=== PATIENT | male | born 1965 | race Asian ===

== ENCOUNTER 2018-07-06 08:23 | Emergency (ER) | payer MEDICAID ==
[~2018-07-06] VITALS: Ht 170.2 cm; Wt 72.7 kg
[2018-07-06] MEDS ORDERED: LOSA50TA64 PO (08:25)
[2018-07-06] MEDS ORDERED: SODIUM CHLORIDE 0.9% 1,000 ML IV ONE ×2 (09:15→10:15)
[2018-07-06] MEDS ORDERED: ONDANSETRON HCL 4 MG/2 ML VIAL IVP ONE (09:15)
[2018-07-06] MEDS ORDERED: BARIUM SULFATE 0.1% SUSPENSION 450 ML BOTTLE PO ONE (09:15)
[2018-07-06] MEDS ORDERED: FentaNYL CITRATE-PF 100 MCG/2 ML VIAL IVP ONE (09:15)
[2018-07-06 09:25] LABS: BASOPHILS % (AUTO) 0.6 % (0.0-2.0); EOSINOPHILS % (AUTO) 0.8 % (1.0-6.0); HEMATOCRIT 42.3 % (41-53); HEMOGLOBIN 14.2 g/dL (13.5-17.5); LYMPHOCYTES # (AUTO) 1.7 K/uL (1.0-4.8); LYMPHOCYTES % (AUTO) 21.5 % (22.0-44.0); MEAN CORPUSCULAR HEMOGLOBIN 28.8 pg (26.0-34.0); MEAN CORPUSCULAR HGB CONC 33.6 G/dL (31.0-37.0); MEAN CORPUSCULAR VOLUME 86 fL (80-100); MONOCYTES # (AUTO) 0.6 K/uL (0.1-1.0); MONOCYTES % (AUTO) 7.8 % (2.0-9.0); NEUTROPHILS # (AUTO) 5.6 K/uL (1.8-7.7); NEUTROPHILS % (AUTO) 69.3 % (40.0-70.0); PLATELET COUNT (AUTO) 227 K/uL (150-450); RED BLOOD CELL COUNT(AUTO) 4.93 MIL/uL (4.50-5.90); RED CELL DISTRIBUTION WIDTH 13.2 % (11.5-14.5)
[2018-07-06 09:38] LABS: CALCIUM, TOTAL 9.2 mg/dL (8.8-10.5); CREATININE 2.02 mg/dL (0.60-1.30); POTASSIUM 4.1 mmol/L (3.5-5.1)
[2018-07-06 09:46] LABS: ALBUMIN 3.9 g/dL (3.4-5.0); BILIRUBIN,TOTAL 0.4 mg/dL (0.1-1.0); TOTAL PROTEIN, SERUM 7.2 g/dL (6.4-8.2)
[2018-07-06] MEDS ORDERED: IOVERSOL 350 MG/ML 100 ML VIAL ONE (10:32)
[2018-07-06] MEDS ORDERED: SODIUM CHLORIDE 0.9% 0 ML ONE (10:32)
[2018-07-06 10:57] LABS: APPEARANCE,URINE CLEAR (CLEAR); BILIRUBIN,URINE NEGATIVE (NEGATIVE); GLUCOSE, URINE (UA) NEGATIVE (NEGATIVE); KETONES,URINE NEGATIVE (NEGATIVE); LEUKOCYTE ESTERASE ,URINE NEGATIVE (NEGATIVE); NITRATE,URINE NEGATIVE (NEGATIVE); OCCULT BLOOD,URINE SMALL (NEGATIVE); PROTEIN,URINE NEGATIVE (NEGATIVE); UROBILINOGEN,URINE 0.2 mg/dL (<=1.0)
[2018-07-06 11:12] LABS: BACTERIA,URINE None Seen /HPF (None Seen); SQUAMOUS EPITHELIAL CELL,UR Few /LPF (None Seen)
[2018-07-06] MEDS ORDERED: ONDANSETRON HCL 4 MG/2 ML VIAL IVP PRN (12:45)
[2018-07-06] MEDS ORDERED: ACETAMINOPHEN 325 MG TABLET PO PRN (12:45)
[2018-07-06] MEDS ORDERED: 0.9% SODIUM CHLORIDE 10 ML SYRINGE IVP PRN (12:45)
[2018-07-06 16:34] VITALS: BP 128/69
== END 2018-07-06 17:07 | disposition home or self-care (01) ==
LOC: EMS 08:26 → 5N 15:59 → UNDOADMIN 15:59 → EMS 17:07
DX: K52.9 Noninfective gastroenteritis and colitis, unspecified (principal); N17.9 Acute kidney failure, unspecified; I10 Essential (primary) hypertension; E87.6 Hypokalemia
CPT/HCPCS: 36415; 51701; 71045; 74176; 80053; 81001; 83690; 84484; 85025; 93005; 96361; 96374; 96375; 99285; J2405; J3010; J7030; J7050

== ENCOUNTER 2018-07-07 14:11 | Emergency (ER) | payer MEDICAID ==
[~2018-07-07] VITALS: Ht 162.6 cm; Wt 66.8 kg
[~2018-07-07 14:11] MED LIST: LOSA50TA64 PO
[2018-07-07 18:13] VITALS: BP 156/87
[2018-07-07 18:18] LABS: CALCIUM, TOTAL 9.1 mg/dL (8.8-10.5); CREATININE 1.31 mg/dL (0.60-1.30); POTASSIUM 3.7 mmol/L (3.5-5.1)
== END 2018-07-07 18:51 | disposition home or self-care (01) ==
LOC: EMS 14:12
DX: T83.89XA Other specified complication of genitourinary prosthetic devices, implants and grafts, initial encounter (principal); I10 Essential (primary) hypertension; Z79.899 Other long term (current) drug therapy; Y84.6 Urinary catheterization as the cause of abnormal reaction of the patient, or of later complication, without mention of misadventure at the time of the procedure

== ENCOUNTER 2021-08-02 19:55 | Emergency (ER) | payer MEDICAID, OTHER ==
[~2021-08-02] VITALS: Ht 162.6 cm; Wt 67.3 kg
[~2021-08-02 19:55] MED LIST changes: +LOSA-382 PO; -LOSA50TA64 PO
[2021-08-02 20:03] VITALS: BP 139/89
[2021-08-02] MEDS ORDERED: LIDOCAINE 1% 10 ML VIAL ID ONE (21:00)
== END 2021-08-02 22:09 | disposition home or self-care (01) ==
LOC: EMS 19:58
DX: S61.212A Laceration without foreign body of right middle finger without damage to nail, initial encounter (principal); I10 Essential (primary) hypertension; N40.0 Benign prostatic hyperplasia without lower urinary tract symptoms; W45.8XXA Other foreign body or object entering through skin, initial encounter; Y93.89 Activity, other specified; Y92.511 Restaurant or cafe as the place of occurrence of the external cause; Y99.0 Civilian activity done for income or pay
CPT/HCPCS: 12001; 99282; J3490